=== PATIENT | male | born 1960 | race Hispanic/Latino ===

== ENCOUNTER → 2019-12-09 | Outpatient (RCR) | payer BC | LOC: PT 11-16 16:23 | PROVIDERS: ATTEND Specialist | DX: M75.42 Impingement syndrome of left shoulder (principal); M62.81 Muscle weakness (generalized); M25.512 Pain in left shoulder ==

== ENCOUNTER 2019-12-19 16:00 | Outpatient (RCR) | payer BC | END 2020-01-09 | LOC: PT 16:00 | PROVIDERS: ATTEND Specialist | DX: M75.42 Impingement syndrome of left shoulder (principal); M62.81 Muscle weakness (generalized) | CPT/HCPCS: 97139 ==